=== PATIENT | male | born 1985 | race Caucasian/White ===

== ENCOUNTER 2019-07-14 10:18 | Emergency (ER) | payer OTHER ==
[~2019-07-14] VITALS: Ht 177.8 cm; Wt 88.9 kg
[~2019-07-14 10:18] MED LIST: ACETAMINOPHEN500 MG PO; ALBU8HFA2 INH; ALBU90OI INH; ALBU90OI6 INH; ATOM40 PO; AZIT250 PO; CLIN300 PO; CRUTCH3 USE; CYCL10 PO; Cleocin HCl300 MG PO; DOXY100 PO; FLUT110OIA IH; HYDACE5 PO; IBUP400 PO; IBUP600 PO; IBUP800 PO; KETO10 PO; METO10 PO; NAPR500 PO; Naprosyn500 MG PO; OXYACE5T PO; PERM5TC TOP; PRED20 PO; PREDNISONE; PROM25 PO; PROM25S PR; Percocet 5-3251 EACH PO; Prednisone20 MG PO; Prudoxin45 GM EXT; RXCLIN PO; RXERYTOPTH OP; RXPROM25 PO; SULTRIDS PO; TRAM50 PO; Triamcinolone A15 GM TOP; Zofran Odt4 MG PO; Zofran Odt8 MG SL
[2019-07-14] MEDS ORDERED: Cleocin HCl300 MG PO (10:39)
[2019-07-14] MEDS ORDERED: Monodox100 MG PO (10:44)
[2019-07-14] MEDS ORDERED: IBU800 MG PO (10:45)
== END 2019-07-14 10:50 | disposition home or self-care (01) ==
LOC: ER 10:18
DX: K02.9 Dental caries, unspecified (principal); F17.210 Nicotine dependence, cigarettes, uncomplicated; Z88.0 Allergy status to penicillin
CPT/HCPCS: 99282

== ENCOUNTER 2020-12-21 10:24 | Emergency (ER) | payer OTHER | END 2020-12-21 11:25 | disposition home or self-care (01) | LOC: ER 10:24 | DX: K04.7 Periapical abscess without sinus (principal); F17.210 Nicotine dependence, cigarettes, uncomplicated; Z88.0 Allergy status to penicillin ==

== ENCOUNTER 2021-03-10 09:25 | Emergency (ER) | payer OTHER ==
[~2021-03-10] VITALS: Ht 180.3 cm; Wt 74.8 kg
[~2021-03-10 09:25] MED LIST changes: +IBU600 M1 PO; +IBU800 MG PO; +Monodox100 MG PO; +Zithromax250 MG PO
[2021-03-10] MEDS ORDERED: IBU600 M1 PO (09:48)
[2021-03-10] MEDS ORDERED: Zithromax250 MG PO (09:48)
== END 2021-03-10 09:53 | disposition home or self-care (01) ==
LOC: ER 09:25
DX: K04.7 Periapical abscess without sinus (principal); J45.909 Unspecified asthma, uncomplicated; F17.210 Nicotine dependence, cigarettes, uncomplicated; Z88.0 Allergy status to penicillin; Z88.1 Allergy status to other antibiotic agents
CPT/HCPCS: 99282